=== PATIENT | male | born 1955 | race African-American/Black ===

== ENCOUNTER 2017-06-20 18:28 | Emergency (ER) | payer BC ==
[~2017-06-20] VITALS: Ht 172.7 cm; Wt 135.1 kg
[~2017-06-20 18:28] MED LIST: ASCORBIC ACID500 M3 PO; BYSTOLIC2.5 MG PO; CLEOCIN300 MG PO; HYDROCHLOROTHIA25 MG PO; MOTRIN400 MG PO; NORVASC10 M1 PO; NORVASC5 MG PO; PRAVACHOL40 MG PO; PROTONIX40 MG PO; TOPROL XL50 MG PO; TRAMADOL HCL50 MG PO
[2017-06-20 21:32] LABS: MCH 26.4 PG (29.0-34.0); MCHC 33.2 G/DL (30.0-36.0); MCV 79.5 FL (86-99); MEAN PLAT.VOLUME 11.2 uM^3 (9.0-12.4); PLATELET COUNT 140 K/uL (156-360); RBC DIS.WIDTH-CV 14.5 % (11.8-14.6); RBC DIS.WIDTH-SD 42.1 % (39-53); RED BLOOD COUNT 5.16 M/uL (4.00-5.50); WHITE BLOOD COUNT 7.2 K/uL (4.1-10.2)
[2017-06-20 21:40] LABS: CHLORIDE 102 mEq/L (99-109); POTASSIUM 4.2 mEq/L (3.7-5.4); SODIUM 132 mEq/L (136-147)
[2017-06-20 21:42] LABS: GLUCOSE 101 mg/dL (70-99)
[2017-06-20 21:44] LABS: ANION GAP 8 MEQ/L (2-14); TOTAL BILIRUBIN 0.8 mg/dL (0.0-1.0)
[2017-06-20 21:46] LABS: ALKALINE PHOSPHATASE 55 IU/L (3-129); GFR ESTIMATE (CALCULATED) > 59 mL/min/
[2017-06-20 21:47] LABS: UREA NITROGEN (BUN) 15 mg/dL (9-23)
[2017-06-20 22:16] LABS: ADD MIUA? YES; BILIRUBIN NEGATIVE; BLOOD SMALL; COLOR AMBER ((YELLOW)); GLUCOSE (STRIP) NEGATIVE; KETONES NEGATIVE; LEUKOCYTES NEGATIVE; NITRITE NEGATIVE; PROTEIN (STRIP) 100; SPECIFIC GRAVITY 1.024 (1.000-1.030)
[2017-06-20 22:25] LABS: BACTERIA RARE /HPF; EPITHELIAL CELLS NONE SEEN /HPF; MUCUS 1+ /LPF; UCUL ADDED? NO; WHITE BLOOD CELLS 0-5 /HPF (0-5)
[2017-06-20] MEDS ORDERED: CIPRO500 MG PO (23:27)
[2017-06-20 23:44] VITALS: BP 174/69
== END 2017-06-20 23:45 | disposition home or self-care (01) ==
LOC: EME 18:28
PROVIDERS: Physician Assistant
DX: R50.9 Fever, unspecified (principal); R39.15 Urgency of urination; R19.00 Intra-abdominal and pelvic swelling, mass and lump, unspecified site; I10 Essential (primary) hypertension; K21.9 Gastro-esophageal reflux disease without esophagitis; E03.9 Hypothyroidism, unspecified
CPT/HCPCS: 74176; 80053; 81003; 82607; 83605; 84443; 85027; 87040; 87086; 99281; 99285; J7030

== ENCOUNTER 2017-11-23 15:46 | Emergency (ER) | payer OTHER, BC ==
[~2017-11-23] VITALS: Ht 172.7 cm; Wt 133.1 kg
[~2017-11-23 15:46] MED LIST changes: +CIPRO500 MG PO
[2017-11-23 20:33] VITALS: BP 148/83
== END 2017-11-23 20:34 | disposition home or self-care (01) ==
LOC: EME 15:46
DX: S16.1XXA Strain of muscle, fascia and tendon at neck level, initial encounter (principal); V49.9XXA Car occupant (driver) (passenger) injured in unspecified traffic accident, initial encounter; I10 Essential (primary) hypertension
CPT/HCPCS: 72040; 72125; 80048; 85027; 99281; 99283